=== PATIENT | female | born 1955 | race Caucasian/White ===

== ENCOUNTER 2018-09-02 16:38 | Inpatient (IN) | payer BC ==
[~2018-09-02] VITALS: Ht 157.5 cm; Wt 74.8 kg
[~2018-09-02 16:38] MED LIST: CIPROFLOXACIN500 M1; TYLENOL EX-STR500 M2 PO; VICODIN 5-5001 EACH; [UNRECOGNIZED DRUG - OTHER]
[2018-09-02 18:04] VITALS: BP 139/45
[2018-09-02] MEDS ORDERED: HIGH BLOOD PRESSURE (19:39)
[2018-09-02] MEDS ORDERED: LIPITOR 20 MG T20 M1 PO (19:40)
[2018-09-02] MEDS ORDERED: BYSTOLIC2.5 MG PO (19:40)
[2018-09-02 19:51] LABS: ABSOLUTE NEUTROPHILS 4.2 thou/uL (1.4-8.2); BASOPHILS 0.6 % (0.0-2.0); EOSINOPHILS 2.1 % (0.0-3.0); HEMATOCRIT 34.3 % (37.0-47.0); HEMOGLOBIN 11.4 gm/dL (12.0-15.0); MCH 30.8 pg (26.0-34.0); MCHC 33.4 g/dL (28.0-37.0); MCV 92.3 fL (80.0-100.0); MONOCYTES 6.9 % (1.0-8.0); PLATELET COUNT 333 thou/uL (150-400); POLYS 70.4 % (36.0-66.0); RBC 3.71 mil/uL (4.20-5.00); RDW 13.9 % (10.5-14.5)
[2018-09-02 20:04] LABS: ANION GAP 11 mmol/L (7-16); BUN 16 mg/dL (7-18); CALCIUM 9.2 mg/dL (8.5-10.1); CHLORIDE 103 mmol/L (98-107); CO2 28 mmol/L (21-32); CREATININE 0.7 mg/dL (0.6-1.0); GLUCOSE 103 mg/dL (74-106); POTASSIUM 3.5 mmol/L (3.5-5.1); SODIUM 142 mmol/L (136-145)
[2018-09-02 20:13] LABS: TROPONIN-I <0.06 ng/mL (<0.06)
--- NOTE | 2018-09-02 22:15 | NUR ---
REPORT TO 4W AT THIS TIME.
[2018-09-02 22:38] VITALS: BP 131/48
[2018-09-03] VITALS (7 sets, daily range): BP systolic 109–135; BP diastolic 42–60
--- NOTE | 2018-09-03 03:48 | NUR ---
PT ARRIVED TO FLOOR FROM ED PT ORIENTATED TO ROOM AND CALL LIGHT PT USED CALL LIGHT EFFECTIVELY NO COMPLAINTS OF PAIN NO ISSUES OVERNIGHT.
[2018-09-03] MEDS ORDERED: NORVASC5 MG PO (10:05)
--- NOTE | 2018-09-03 16:57 | 2DMMODE ---
[facility] [address] [facility] [place] [address] 2 D/M-MODE ECHOCARDIOGRAM Name: BRITTANI LLOYD Room #: 459-P ADM IN M.R.#: [id number] ������������� Admission: 09/02/18 ������������� Attend Phys: Cristo Villanueva, Discharge: ��� ������������� ��� Date of : 53 Date of Service: 09/03/18 1656 �� Report #: [id number] �������� ��������������������������������������������[id number] THIS REPORT FOR: //name// APPROVED REPORT Study performed: 09/03/2018 09:14:04 EXAM: Comprehensive 2D, Doppler, and color-flow Echocardiogram Patient Location: Bedside Room #: 459 Status: on-call BSA: 1.76 HR: 46 bpm BP: 110/52 mmHg Rhythm: Bradycardia Other Information Study Quality: Good Risk Factors: Cardiac Risk Factors: HTN, Hyperlipidemia Indications Bradycardia Syncope Hx Non Q Wave Infarction 2D Dimensions IVSd: 8.90 (7-11mm) LVOT Diam: 20.00 (18-24mm) LVDd: 52.61 mm PWd: 9.30 (7-11mm) Ascending Ao: 32.64 (22-36mm) LVDs: 33.60 (25-40mm) Aortic Root: 26.75 mm LV Single Plane 4CH: 67.69 % LV Single Plane 2CH: 70.52 % Biplane EF: 68.8 % Volumes Left Atrial Volume (Systole) Single Plane 4CH: 44.33 mL Single Plane 2CH: 44.71 mL LA ESV Index: 28.00 mL/m2 Aortic Valve AoV Peak Malik.: 1.66 m/s [facility] [place] [address] 2 D/M-MODE ECHOCARDIOGRAM Name: BRITTANI LLOYD Room #: 459-P [facility] IN .R.#: [id number] ������������� Admission: 09/02/18 ������������� Attend Phys: Cristo Villanueva, Discharge: ��� ������������� ��� Date of : 53 Date of Service: 09/03/18 1656 �� Report #: [id number] �������� ��������������������������������������������[id number] AO Peak Gr.: 10.99 mmHg LVOT Max P.38 mmHg LVOT Max V: 1.16 m/s ROSA Vmax: 2.28 cm2 Mitral Valve E/A Ratio: 0.8 MV Decel. Time: 392.78 ms MV E Max Malik.: 0.96 m/s MV A Malik.: 1.18 m/s MV PHT: 113.91 ms IVRT: 69.20 ms TDI E/Lateral E': 12.00 E/Medial E': 13.71 Medial E' Malik.: 0.07 m/s Lateral E' Malik.: 0.08 m/s Pulmonary Valve PV Peak Malik.: 1.03 m/s PV Peak Gr.: 4.24 mmHg Pulmonary Vein P Vein S: 0.38 m/s P Vein A: 0.31 m/s P Vein D: 0.51 m/s P Vein A Dur.: 124.6 msec P Vein S/D Ratio: 0.75 Tricuspid Valve TR Peak Malik.: 2.72 m/s RAP Estimate: 7.00 mmHg TR Peak Gr.: 29.52 mmHg PA Pressure: 37.00 mmHg Left Ventricle The left ventricle is normal size. There is normal LV segmental wall motion. There is normal left ventricular wall thickness. Left ventricular systolic function is normal. The left ventricular ejection fraction is within the normal range. LVEF is 65-70%. Mild diastolic dysfunction is present (impaired relaxation pattern). Right Ventricle The right ventricle is normal size. The right ventricular systolic function is normal. Atria The left atrium size is normal. The right atrium size is normal. [facility] [address] [place] [address] 2 D/M-MODE ECHOCARDIOGRAM Name: BRITTANI LLOYD Room #: 459-P [facility] IN [facility]#: [id number] ������������� Admission: 09/02/18 ������������� Attend Phys: Cristo Villanueva, Discharge: ��� ������������� ��� Date of : 53 Date of Service: 09/03/18 1656 �� Report #: [id number] �������� ��������������������������������������������[id number] Aortic Valve The aortic valve is normal in structure. No aortic regurgitation is present. There is no aortic valvular stenosis. Mitral Valve The mitral valve is normal in structure. Mild mitral regurgitation. No evidence of mitral valve stenosis. Tricuspid Valve The tricuspid valve is normal in structure. Mild tricuspid regurgitation. Pulmonary artery pressure is 37 mmHg. Pulmonic Valve The pulmonary valve is normal in structure. There is no pulmonic valvular regurgitation. Great Vessels The aortic root is normal in size. IVC is normal in size and collapses >50% with inspiration. Pericardium There is no pericardial effusion. <Conclusion> The left ventricle is normal size. LVEF is 65-70%. The aortic valve is normal in structure. The mitral valve is normal in structure. The tricuspid valve is normal in structure. Mild tricuspid regurgitation. Pulmonary artery pressure is 37 mmHg. The pulmonary valve is normal in structure. There is no pericardial effusion. ��������������������������������������������� <ELECTRONICALLY SIGNED> ���������������������������������������� By: Oleksandr Gomez MD ��������������������������������������������� 09/03/18 1656 55 55 Oleksandr Gomez MD /INF
--- NOTE | 2018-09-03 17:54 | NUR ---
PT A&OX3, VSS, NO SIGNS OF DISTRESS. PT HAS RESTED IN BED THROUGHOUT DAY. ORTHOSTATIC BP TAKEN EARLY SHIFT. PT REMAINS SINUS PATRICK ON TELE MONITOR. WILL CONTINUE TO MONITOR.
--- NOTE | 2018-09-03 19:10 | HC ---
[facility] [place] [address] CONSULTATION Name: BRITTANI LLOYD Room #: 459-P ADM IN M.R.#: [id number] Admission: 09/02/18 ������������������ Attend Phys: Cristo Villanueva MD Discharge: ������������������ Date of : 53 Report #: [id number] THIS REPORT FOR: //name// CC: Omero Villanueva HISTORY OF PRESENT ILLNESS: This is a very pleasant 63-year-old female who presented to the Emergency Room with 2 episodes of syncope over the last 24-36 hours. 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 The second episode occurred the day of admission and she was dry heaving and lost consciousness and fell backwards hitting her head. The patient denies any prior history of syncope. She states she did have myocardial infarction last summer, but had normal coronary arteries or nonsignificant coronary artery disease. Those records are not available to me currently. She denies any symptoms or problems. Since last summer until this episode of syncope. She has no orthopnea, PND, syncope, near syncope prior. No dependent or nondependent edema. No problems with medications. She states her blood pressure has been fairly well controlled. She does feel tired all the time, but she states she attributes that to working on the line and has not progressed any over the last 6 months. PAST MEDICAL HISTORY: 1. Possible prior myocardial infarction. 2. Melanoma history. 3. Hypertension. 4. Dyslipidemia. ALLERGIES: No known drug allergies. MEDICATIONS: Bystolic 2.5 mg daily, Lipitor 20 mg daily, acetaminophen p.r.n., amlodipine 5 mg. PAST SURGICAL HISTORY: 1. Melanoma excision. 2. Bladder sling. 3. Hysterectomy. SOCIAL HISTORY: The patient does not smoke, but does have secondhand smoke. Does not consume alcohol or recreational drugs. Does not follow particular exercise regimen, dietary restriction. FAMILY HISTORY: Significant for premature cardiovascular disease with a sister dying of myocardial infarction at age 52. REVIEW OF SYSTEMS: Except for symptoms previously mentioned and those commensurate with comorbid state, the 10-point review of system is negative. [address] [address] CONSULTATION Name: BRITTANI LLOYD Room #: 459-P [facility] IN M.R.#: [id number] Admission: 09/02/18 ������������������ Attend Phys: Cristo Villanueva MD Discharge: ������������������ Date of : 53 Report #: [id number] RADIOLOGIC: Chest x-ray shows no acute abnormalities. LABORATORY DATA: Demonstrates a potassium 3.5, BUN and creatinine of 16 and 0.7 respectively. Troponins are negative. H and H is 14.4 and 34.3 with a platelet count 333,000. Electrocardiogram demonstrates normal sinus rhythm, nonspecific ST-T wave changes. PHYSICAL EXAMINATION: GENERAL: Well-developed, well-nourished female resting comfortably, in no acute distress. VITAL SIGNS: Noted, reviewed in the chart. HEENT: Normocephalic, atraumatic. Pupils are equal, round, reactive to light and accommodation. Extraocular muscles are intact. Sclerae and conjunctivae are anicteric. NECK: JVD is normal. Carotid upstrokes are bilaterally symmetrical. No bruits are heard. No thyromegaly. No lymphadenopathy. LUNGS: Clear to auscultation. No wheezes, rhonchi or crackles. No CVA tenderness. CARDIAC: Demonstrates a regular rhythm. Normal first and second heart sounds. No ventricular or atrial gallops, no rubs noted. No murmurs. No lifts or heaves, PMI normal. ABDOMEN: Soft, nontender, nondistended. Normal bowel sounds. EXTREMITIES: Without cyanosis, clubbing or edema. Distal pulses are intact. DTR symmetrical. NEUROLOGIC: Cranial nerves 2-12 are grossly normal and symmetrical. PSYCHIATRIC: Alert, oriented with normal affect. SKIN: Warm and dry. IMPRESSION AND PLAN: 1. Syncope, etiology of which is uncertain. This is multifactorial. Interestingly enough, the nursing staff has noted that while awake, she has had heart rates in the mid to high 40s and low 50s. Nocturnally, she has the typical bradyarrhythmias that are very common in individuals. The Bystolic has been held and pulse still remains in the high 40s. This may be an etiology we can monitor over the next day or so and if the heart rate does not increase, then we may want to do a regular treadmill to see whether there is any chronotropic impairment or home with an event monitor, so we can try and see where her heart rate is and capture any other episodes that may occur, although this may be low yield. 2. Coronary artery disease, asymptomatic. Apparently was scheduled for followup with Dr. Bustillo's office here in the next several weeks. I will defer any of this follow up to him when he resumes care on Wednesday. 3. Hypertension. We will need to monitor the blood pressure very carefully. Since the Bystolic is on hold, we do not want to increase that to a point of being concerning and critical. We will monitor very closely and if need be, we [address] [address] CONSULTATION Name: BRITTANI LLOYD Room #: 459-P ADM IN M.R.#: [id number] Admission: 09/02/18 ������������������ Attend Phys: Cristo Villanueva MD Discharge: ������������������ Date of : 53 Report #: [id number] can add other agents that are not rate limiting. 4. Dyslipidemia. The patient is on a statin. Did discuss briefly [place] [employer] step 1 diet recommendations to be concomitantly used with statin therapy. ��������������������������������������������� <ELECTRONICALLY SIGNED> ���������������������������������������� By: Oleksandr Gomez MD ��������������������������������������������� 09/03/18 1910 1328 1350 Oleksandr Gomez MD /nt
--- NOTE | 2018-09-04 01:13 | NUR ---
PT RESTED THROUGHOUT THE NIGHT WITH NO COMPLAINTS OF PAIN NO ISSUES OVERNIGHT.
[2018-09-04 03:30] VITALS: BP 131/52
[2018-09-04 08:04] VITALS: BP 114/55
[2018-09-04 08:55] VITALS: BP 114/55
--- NOTE | 2018-09-04 11:16 | NUR ---
DIS PT IS FOR DC TODAY. IV AND HEART MONITOR DC'D. WILL FF ON CARDIOLOGY CLINIC TOMMORROW PER PROVIDER.
--- NOTE | 2018-09-05 08:03 | EKG ---
[address] [address] ELECTROCARDIOGRAM REPORT Name: BRITTANI LLOYD [facility] ..#: [id number] ������������������ Admission: 09/02/18 ������������������ Attend Phys: Cristo Villanueva MD Discharge: 09/04/18 ������������������ Date of : 53 Report #: [id number] ����������������������������������������������������������������� [id number] THIS REPORT FOR: //name// [facility] ED Test Date: 2018-09-02 Test Time: 19:35:15 Pat Name: BRITTANI LLOYD Department: Room: [facility] Gender: F [employer] Manager: IRVING MENENDEZ : 1955 Requested By: Krystyna Seay Order Number: [id number] MD: Lalo Bustillo Measurements Intervals [place] Rate: 39 P: 31 UT: 172 QRS: -25 QRSD: 130 T: -11 QT: 470 QTc: 379 Interpretive Statements Sinus bradycardia Borderline T abnormalities Compared to ECG 05/07/1997 09:56:00 T-wave abnormality now present Electronically Signed On 09-05-2018 8:03:32 CDT by Lalo Bustillo [email or web address] ��������������������������������������������� <ELECTRONICALLY SIGNED> ���������������������������������������� By: Lalo Bustillo MD, [facility] ��������������������������������������������� 09/05/18 0803 34 34 Lalo Bustillo MD, [facility] /EPI
== END 2018-09-04 12:58 | disposition home or self-care (01) | DRG 312 ==
LOC: ER 16:38 → EROBS 22:00 → 4W 23:29
PROVIDERS: Emergency Medicine; ADMIT Internal Medicine
DX: R55 Syncope and collapse (principal); R00.1 Bradycardia, unspecified; I10 Essential (primary) hypertension; I25.10 Atherosclerotic heart disease of native coronary artery without angina pectoris; E78.5 Hyperlipidemia, unspecified; T44.7X5A Adverse effect of beta-adrenoreceptor antagonists, initial encounter; Y92.89 Other specified places as the place of occurrence of the external cause; I25.2 Old myocardial infarction; Z90.710 Acquired absence of both cervix and uterus; Z85.820 Personal history of malignant melanoma of skin; Z79.899 Other long term (current) drug therapy; Z82.49 Family history of ischemic heart disease and other diseases of the circulatory system
CPT/HCPCS: 10045

== ENCOUNTER 2018-09-07 16:54 | Inpatient (IN) | payer BC ==
[~2018-09-07] VITALS: Ht 157.5 cm; Wt 74.8 kg
--- NOTE | ~2018-09-07 | HC ---
[facility] [place] [address] CONSULTATION Name: BRITTANI LLOYD Room #: 359-P ADM IN M.R.#: [id number] Admission: 09/07/18 ������������������ Attend Phys: Yong Huitron Discharge: ������������������ Date of : 53 Report #: [id number] THIS REPORT FOR: //name// CC: Omero Villanueva DATE OF SERVICE: 09/09/2018 REASON FOR CONSULTATION: Syncope and sinus bradycardia. HISTORY OF PRESENT ILLNESS: The patient is a 63-year-old patient who follows with Dr. Bustillo. She has a history of a recovered Takotsubo cardiomyopathy, mild coronary artery disease based on a cath in 2018, hypertension, hyperlipidemia and recent syncopal episode. She was hospitalized last week. She reports that last week while at work, she felt lightheaded, diaphoretic and passed out. On Wednesday, she was in her restroom, she was going to go try and throw up and before she could throw up, she passed out. She was admitted to the hospital where her blood pressure and heart rates were found to be low and her beta yina and other blood pressure medications were discontinued and she was sent home with a heart monitor. She did well on Wednesday, but on Wednesday, she was at work, she felt flushed, lightheaded, and then fell to the ground, but did not completely pass out. This was around 10:00 p.m. She was wearing her diagnostic cardiac sonographer. I did have them pull up her monitor strips. There were no arrhythmias noted at this point. Because of the syncopal episode, she came back to the Emergency Room for further evaluation. On telemetry, she has periods of sinus bradycardia into the 30s and 40s; however, she underwent an exercise treadmill stress test yesterday and she is able to augment her heart rate up to 115 beats per minute. She exercised for 6-1/2 minutes and achieved 9 mets. She denies any chest pain or chest tightness. She denies PND or orthopnea. Her last echo was in 03/2018 revealing EF 55-60% with no ischemic changes. PAST MEDICAL HISTORY: As above. SOCIAL HISTORY: Does not smoke. FAMILY HISTORY: Noncontributory. ALLERGIES: None. MEDICATIONS: Have been reviewed and she is on aspirin, famotidine, Ambien, Zofran and all her blood pressure medications have been stopped. REVIEW OF SYSTEMS: A 12-point review of systems was performed and was negative other than what I mentioned above. [address] [address] CONSULTATION Name: BRITTANI LLOYD Room #: 359-P [facility] IN M.R.#: [id number] Admission: 09/07/18 ������������������ Attend Phys: Yong Huitron Discharge: ������������������ Date of : 53 Report #: [id number] PHYSICAL EXAMINATION: VITAL SIGNS: Temperature is 36.7, pulse 51-66, respirations 20, blood pressure 144/64, sats are 97%. GENERAL: She is in no acute distress. HEENT: Oropharynx is clear. Sclerae anicteric. NECK: Supple, no thyromegaly or carotid bruits. HEART: Regular rate and rhythm with no murmurs, rubs or gallops. LUNGS: Clear to auscultation bilaterally. ABDOMEN: Soft, nontender, nondistended, no hepatosplenomegaly. EXTREMITIES: There is no clubbing, cyanosis or edema. NEUROLOGIC: Cranial nerves 2-12 are intact. LABORATORY DATA: Have been reviewed. Hemoglobin is 11, white count is 7, platelets 311. Chemistry: Sodium 143, potassium 3.5, creatinine 0.8. Troponin is negative. ProBNP is 200. TSH is 0.37. Her EKG shows normal sinus rhythm with normal intervals and normal QTc. ASSESSMENT: 1. Sinus bradycardia. 2. Syncope. PLAN: In summary, the patient has sinus bradycardia, but her heart rate augments with activity. She was wearing a diagnostic cardiac sonographer at the time of her syncopal episode and there were no alerted events during that episode on Wednesday. As such, I do not believe there is currently an arrhythmia to explain her syncope. It may be related to low blood pressures. I have recommended that she continue to wear the diagnostic cardiac sonographer. Follow up with Dr. Bustillo. If we start seeing more bradycardia that is symptomatic, then we will consider pacemaker implantation. ��������������������������������������������� ���������������������������������������� By: ��������������������������������������������� 1201 0425 Tamir Hansen MD /nt
[~2018-09-07 16:54] MED LIST changes: +BYSTOLIC2.5 MG PO; +HIGH BLOOD PRESSURE; +LIPITOR 20 MG T20 M1 PO; +NORVASC5 MG PO
[2018-09-07 16:55] VITALS: BP 131/57
[2018-09-07] MEDS ORDERED: UNICOMPLEX M TA1 TA1 PO (17:04)
[2018-09-07] MEDS ORDERED: FISH OIL 1,001000 M2 PO (17:04)
[2018-09-07] MEDS ORDERED: MICROZIDE12.5 MG PO (17:05)
[2018-09-07] MEDS ORDERED: LISINOPRIL40 MG PO (17:05)
[2018-09-07] MEDS ORDERED: ZANTAC 150MG T150 MG PO (17:05)
[2018-09-07] MEDS ORDERED: ASPIR 8181 MG PO (17:05)
[2018-09-07] MEDS ORDERED: MOBIC15 MG PO (17:05)
[2018-09-07 17:32] LABS: HEMATOCRIT 36.1 % (37.0-47.0); MCH 30.6 pg (26.0-34.0); MCHC 33.1 g/dL (28.0-37.0); MCV 92.4 fL (80.0-100.0); RBC 3.91 mil/uL (4.20-5.00); RDW 14.2 % (10.5-14.5); WBC 12.7 thou/uL (4.0-11.0)
[2018-09-07 17:46] LABS: ANION GAP 11 mmol/L (7-16); BUN 25 mg/dL (7-18); CALCIUM 9.2 mg/dL (8.5-10.1); CHLORIDE 105 mmol/L (98-107); CO2 27 mmol/L (21-32); CREATININE 0.8 mg/dL (0.6-1.0); GLUCOSE 124 mg/dL (74-106); POTASSIUM 3.5 mmol/L (3.5-5.1); SODIUM 143 mmol/L (136-145)
[2018-09-07 18:06] LABS: ALBUMIN 4.1 g/dL (3.4-5.0); SGOT 12 U/L (15-37); SGPT 27 U/L (30-65); TOTAL BILIRUBIN 0.3 mg/dL (<0.1-1.0); TOTAL PROTEIN 7.6 g/dL (6.4-8.2); TROPONIN-I <0.06 ng/mL (<0.06)
[2018-09-07 18:33] VITALS: BP 131/57
[2018-09-07 19:37] VITALS: BP 125/51
[2018-09-07] MEDS ORDERED: IBUPROFEN 400400 M2 PO (19:53)
[2018-09-07 19:57] VITALS: BP 154/58
[2018-09-07 20:32] LABS: URINE BILIRUBIN NEGATIVE (Negative); URINE BLOOD NEGATIVE (Negative); URINE CLARITY CLEAR; URINE COLOR YELLOW; URINE GLUCOSE-RANDOM* NEGATIVE (Negative); URINE KETONES NEGATIVE (Negative); URINE LEUKOCYTES-REFLEX NEGATIVE (Negative); URINE NITRITE-REFLEX NEGATIVE (Negative); URINE PROTEIN (DIPSTICK) NEGATIVE (Negative); URINE UROBILINOGEN 0.2 E.U./dl (0.2-1.0)
[2018-09-08] VITALS (9 sets, daily range): BP systolic 103–137; BP diastolic 47–66
[2018-09-08 05:12] LABS: HEMATOCRIT 33.3 % (37.0-47.0); HEMOGLOBIN 11.1 gm/dL (12.0-15.0); MCH 30.8 pg (26.0-34.0); MCHC 33.4 g/dL (28.0-37.0); MCV 92.1 fL (80.0-100.0); RBC 3.61 mil/uL (4.20-5.00); RDW 14.4 % (10.5-14.5); WBC 7.1 thou/uL (4.0-11.0)
--- NOTE | 2018-09-08 05:58 | NUR ---
PT DC'D JUST A FEW DAYS AGO. ADMITTED WITH SAME DIAGNOSIS. HEART RATES ARE SOFT, JUST THEY WERE WITH LAST ADMISSION. PT FELL AGAIN AND HAS HUGE BRUISE ON RIGHT SIDE OF ABDOMEN. PT DOES NOT WANT TO BE ON BED ALARM, EDUCATED PT ABOUT FALLS. HOURLY ROUNDING.
--- NOTE | 2018-09-08 07:53 | EKG ---
[address] [employer] [place] [address] ELECTROCARDIOGRAM REPORT Name: BRITTANI LLOYD Room #: 359-[facility]..#: [id number] ������������������ Admission: 09/07/18 ������������������ Attend Phys: Yong Huitron Discharge: ������������������ Date of : 53 Report #: [id number] ����������������������������������������������������������������� [id number] THIS REPORT FOR: //name// [facility] ED Test Date: 2018-09-07 Test Time: 17:45:59 Pat Name: BRITTANI LLOYD Department: Room: [facility] Gender: F Leadership Development Manager: LUTHER : 1955 Requested By: Suyapa Elias Order Number: [id number] MD: Lalo Bustillo Measurements Intervals [place] Rate: 49 P: 34 UT: 171 QRS: -34 QRSD: 119 T: 4 QT: 442 QTc: 400 Interpretive Statements Sinus bradycardia Leftward axis Poor R wave progression Nonspecific intraventricular conduction delay Compared to ECG 09/02/2018 19:35:15 No significant change was found Electronically Signed On 09-08-2018 7:53:45 CDT by Lalo Bustillo [email or web address] ��������������������������������������������� <ELECTRONICALLY SIGNED> ���������������������������������������� By: Lalo Bustillo MD, [facility] ��������������������������������������������� 09/08/18 0753 1745 1745 Lalo Bustillo MD, [facility] /EPI
--- NOTE | 2018-09-08 14:35 | TST ---
[facility] [employer] [address] TREADMILL STRESS TEST Name: BRITTANI LLOYD Room #: 359-P [facility] IN M.R.#: [id number] ������������� Admission: 09/07/18 ������������� Attend Phys: Yong Smith Discharge: ��� ������������� ��� Date of : 53 Date of Service: 09/08/18 1435 �� Report #: [id number] �������� ��������������������������������������������[id number] THIS REPORT FOR: //name// APPROVED REPORT Study performed: 09/08/2018 14:02:30 Indication: Bradycardia Patient Location: Echo lab Room #: 2 Stress Tech: ROE Milligan Stress Nurse: Jess Krishnamurthy RN Ht: 5 ft 2 in Wt: 165 lbs BSA: 1.76 m2 HR: 63 bpm BP: 121/80 mmHg BMI: 30.17 Rhythm: NSR Medical History Cardiac Risk Factors: HTN, Hyperlipidemia, FHX of CAD Exercise History: Sedentary Stress Test Details Stress Test: Exercise stress testing was performed using a Jerry protocol. HR Max Heart Rate (APMHR): 156 bpm Resting HR: 63 bpm Target HR (85% APMHR): 132 bpm Max HR Achieved: 117 bpm % of APMHR: 75 Recovery HR: 68 bpm HR response to stress: Normal HR response to stress BP Resting BP: 121/80 mmHg Max BP: 172/80 mmHg Recovery BP: 130/80 mmHg BP response to stress: Normal blood pressure response to stress. ECG Resting ECG: Sinus Bradycardia Stress ECG: Sinus Rhythm Maximum ST Deviation: 0 mm Arrhythmia: None Recovery ECG: Sinus Rhythm [facility] [address] [address] TREADMILL STRESS TEST Name: BRITTANI LLOYD Room #: 359-P [facility] IN .R.#: [id number] ������������� Admission: 09/07/18 ������������� Attend Phys: Yong Smith Discharge: ��� ������������� ��� Date of : 53 Date of Service: 09/08/18 143 �� Report #: [id number] �������� ��������������������������������������������[id number] Recovery ST Change: None Recovery ST Deviation: 0 mm Recovery Arrhythmia: None Clinical Reason for Termination: Maximal effort Stress Symptoms: Dizziness, Lightheaded Exercise duration: 6 min 49 sec Exercise capacity: 9.2 METs Overall Exercise Capacity for Age: Poor Angina Score: None Stress ECG Conclusion Clinical: Non-ischemic Normal submaximal stress test. Marie Treadmill Score is 6.0 which is Low risk. <Conclusion> Clinical: Non-ischemic Normal submaximal stress test. ��������������������������������������������� <ELECTRONICALLY SIGNED> ���������������������������������������� By: Lalo Bustillo MD, FAC ��������������������������������������������� 09/08/181434 34 34 Lalo Bustillo MD, FACC /INF
--- NOTE | 2018-09-08 18:13 | NUR ---
PATIENT CONT TO HAVE LOW PULSE RATE. CARDIOLOGY ON BOARD. SHE IS ALERT ORIENTED X4. SHE AMBULATES WITH A STEADY GAIT. DID COMPLAIN OF HEADACHE. PRN PAIN MED ADMINISTERED. SHE IS NOW SLEEPING AND WILL CON WITH PLAN OF CARE.
--- NOTE | 2018-09-09 03:04 | NUR ---
PATIENT IS ALERT AND ORIENTED. PATIENT CALL APPROPIATELY FOR ASSISTANCE. PATIENT IS SBA. PATIENT IS ON ROOM AIR. PATIENT HAD A STRESS TEST TODAY. PATIENT DENIES PAIN. PATIENT IS RESTING COMFORTABLY IN BED.M.
[2018-09-09 03:42] VITALS: BP 116/56
--- NOTE | 2018-09-09 06:46 | NUR ---
PATIENT REFUSED BED ALARM MOST OF SHIFT ALARM ACITIVATED ONCE PATIENT WAS ASLEEP.
[2018-09-09 07:39] VITALS: BP 144/64
--- NOTE | 2018-09-09 08:12 | EKG ---
[place] [address] [facility] [place] [address] ELECTROCARDIOGRAM REPORT Name: BRITTANI LLOYD Room #: 359- ADM IN M.R.#: [id number] ������������������ Admission: 09/07/18 ������������������ Attend Phys: Yong Huitron Discharge: ������������������ Date of : 53 Report #: [id number] ����������������������������������������������������������������� [id number] THIS REPORT FOR: //name// [facility] Test Date: 2018-09-09 Test Time: 07:33:45 Pat Name: BRITTANI LLOYD Department: Room: 359 Gender: F Aircraft Cleaner: MARISA : 1955 Requested By: Lalo Bustillo Order Number: [id number] MD: Lalo Bustillo Measurements Intervals [place] Rate: 50 P: 40 [place]: 175 QRS: -25 QRSD: 117 T: 0 QT: 452 QTc: 413 Interpretive Statements Sinus bradycardia Nonspecific T wave abnormality Compared to ECG 09/07/2018 17:45:59 No significant change was found Electronically Signed On 09-09-2018 8:12:06 CDT by Lalo Bustillo [email or web address] ��������������������������������������������� <ELECTRONICALLY SIGNED> ���������������������������������������� By: Lalo Bustillo MD, [facility] ��������������������������������������������� 09/09/18 0812 2 2 Lalo Bustillo MD, [facility] /EPI
--- NOTE | 2018-09-09 10:30 | NUR ---
ASSESSMENT: CM REVIEWED CHART AND MET WITH PATIENT AT THE BEDSIDE. PT IS ALERT AND ORIENTED X4. PT WAS ADMITTED DUE TO BRADYCARDIA. PT REPORTS THAT SHE LIVES IN A HOUSE WITH HER . 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 PT REPORTS SHE AMBULATES INDEPENDENTLY AND IS INDEPENDENT WITH ADLS. PT DENIES HAVING DME OR THE NEED FOR IT. PT REPORTS THAT SHE HAS NOT HAD HH IN THE PAST OR BEEN TO A SNF. CM DISCUSSED ROLE. PT DOES NOT ANTICIPATE HAVING ANY NEEDS AT DISCHARGE. CM WILL CONTINUE TO FOLLOW TO ASSIST NEEDED.
[2018-09-09 17:04] VITALS: BP 168/75
--- NOTE | 2018-09-09 18:57 | NUR ---
PATIENT HAS RESTED IN ROOM AT THIS TIME. DENIES PIAN. UP AD LUCA. CONT TO PROGRESS TOWARDS GOAL. AOX4. CONT OF BOWEL AND BLADDER. WILL CONT WITH PLAN OF CARE.
[2018-09-09 19:30] VITALS: BP 131/66
--- NOTE | 2018-09-10 01:53 | NUR ---
PATIENT IS ALERT AND ORIENTED.PATIENT IS UP AD LUCA, ROOM AIR. PATIENT IS SINUS PATRICK ON TELE. PATIENT EDUCATED ON CALLING IF REQUIRES ASSISTANCE. PATIENT DENIES PAIN. PATIENT IS PENDING POSSIBLE DISCHARGE TACOS. BP MEDICATIONS TO BE CHANGED. WCM. PATIENT IS RESTING COMFORTABLEY
[2018-09-10 04:20] VITALS: BP 138/56
[2018-09-10 07:27] VITALS: BP 199/35
[2018-09-10 07:45] VITALS: BP 119/35
[2018-09-10 08:45] VITALS: BP 119/35
--- NOTE | 2018-09-10 09:10 | NUR ---
PATIENT WILL BE DISCHARGED THIS AM TO HOME. PLAN IS FOR HER TO FOLLOW UP WITH CARDIOLOGY OUT PATIENT. PT WAS EDUCATED ON NEED TO CALL CARDIOLOGY FOR IF BP IS TOO LOW.. WOODS MONITOR WAS PLACED ON PATIENT PRIOR TO DISCHARGE. WILL CONT WITH PLAN OF CARE. .
== END 2018-09-10 09:54 | disposition home or self-care (01) | DRG 312 ==
LOC: ER 16:54 → 3W 18:31 → EROBS 18:31 → 3W 19:37
PROVIDERS: Student in an Organized Health Care Education/Training Program; ADMIT Hospitalist
DX: R55 Syncope and collapse (principal); I51.81 Takotsubo syndrome; R00.1 Bradycardia, unspecified; I10 Essential (primary) hypertension; I25.10 Atherosclerotic heart disease of native coronary artery without angina pectoris; E78.5 Hyperlipidemia, unspecified; I25.2 Old myocardial infarction; Z85.820 Personal history of malignant melanoma of skin; Z90.722 Acquired absence of ovaries, bilateral; Z90.710 Acquired absence of both cervix and uterus; Z79.82 Long term (current) use of aspirin; Z79.899 Other long term (current) drug therapy; Z82.49 Family history of ischemic heart disease and other diseases of the circulatory system
CPT/HCPCS: 10879

== ENCOUNTER → 2019-04-11 | Day surgery (SDC) | payer BC ==
[~2019-04-11] VITALS: Ht 157.5 cm; Wt 74.4 kg
[~2019-04-11] MED LIST changes: +ADVIL200 M1 PO; +ASPIR 8181 MG PO; +FISH OIL 1,001000 M2 PO; +FISH OIL 1,2001 EAC3 PO; +HYDROCHLOROTH12.5 M1 PO; +IBUPROFEN 400400 M2 PO; +LISINOPRIL40 MG PO; +MICROZIDE12.5 MG PO; +MOBIC15 MG PO; +NORVASC5 M1 PO; +UNICOMPLEX M TA1 TA1 PO; +VITAMIN D35000 UNI1 PO; +WOMEN'S 50 PLU1 EAC1 PO; +ZANTAC 150MG T150 MG PO; +ZESTRIL20 MG PO
[2019-04-11 14:56] VITALS: BP 140/63
== END | disposition home or self-care (01) ==
LOC: OR 11:54
DX: M25.571 Pain in right ankle and joints of right foot (principal); M72.2 Plantar fascial fibromatosis; M77.31 Calcaneal spur, right foot; I10 Essential (primary) hypertension; I25.10 Atherosclerotic heart disease of native coronary artery without angina pectoris; E78.5 Hyperlipidemia, unspecified; I51.81 Takotsubo syndrome; Z90.710 Acquired absence of both cervix and uterus; Z85.828 Personal history of other malignant neoplasm of skin; Z98.890 Other specified postprocedural states; Z79.899 Other long term (current) drug therapy
CPT/HCPCS: 50010; 50101; 50386; 56525; 56526; 57091; 62110; 62850; 70005

== ENCOUNTER → 2019-07-10 | Outpatient (CLI) | payer BC | END | disposition home or self-care (01) | LOC: SJCVCIMAG 09:23 | DX: I07.1 Rheumatic tricuspid insufficiency (principal); E78.5 Hyperlipidemia, unspecified; I65.23 Occlusion and stenosis of bilateral carotid arteries; I10 Essential (primary) hypertension; Z87.898 Personal history of other specified conditions ==

== ENCOUNTER → 2020-08-05 | Outpatient (CLI) | payer BC | LOC: BC 09:35 | PROVIDERS: ATTEND Family Medicine | DX: N63.0 Unspecified lump in unspecified breast (principal) ==

== ENCOUNTER → 2020-10-16 | Outpatient (CLI) | payer BC ==
[~2020-10-16] MED LIST changes: -ASPIR 8181 MG PO; +CHILDREN'S ASPI81 M1 PO; +DOK100 MG PO; +FAMOTIDINE 20 M20 MG PO; +IBUPROFEN 600600 M1 PO; +MYRBETRIQ50 MG PO; -TYLENOL EX-STR500 M2 PO; +TYLENOL EXTRA500 MG PO; +VITAMIN D3125 MC1 PO; -VITAMIN D35000 UNI1 PO
== END ==
LOC: LAB 07:43
PROVIDERS: ATTEND Podiatrist Foot & Ankle Surgery
DX: Z01.812 Encounter for preprocedural laboratory examination (principal); Z20.822 Contact with and (suspected) exposure to COVID-19

== ENCOUNTER 2020-10-22 09:21 | Day surgery (SDC) | payer BC ==
[~2020-10-22] VITALS: Ht 157.5 cm; Wt 77.1 kg
[2020-10-22 10:03] LABS: HEMATOCRIT 35.8 % (37.0-47.0); HEMOGLOBIN 12.1 gm/dL (12.0-15.0); MCH 30.7 pg (26.0-34.0); MCHC 33.8 g/dL (28.0-37.0); MCV 90.9 fL (80.0-100.0); RBC 3.94 mil/uL (4.20-5.00); RDW 14.1 % (10.5-14.5)
[2020-10-22 10:09] LABS: CALCIUM 9.2 mg/dL (8.5-10.1); CREATININE 0.7 mg/dL (0.6-1.0); POTASSIUM 3.7 mmol/L (3.5-5.1)
[2020-10-22 10:14] VITALS: BP 154/74
== END 2020-10-22 15:00 | disposition home or self-care (01) ==
LOC: OR 09:21 → TBA 10:00 → OR 10:43
PROVIDERS: ATTEND Podiatrist Foot & Ankle Surgery
DX: M72.2 Plantar fascial fibromatosis (principal); I10 Essential (primary) hypertension; E78.5 Hyperlipidemia, unspecified; I42.9 Cardiomyopathy, unspecified; K21.9 Gastro-esophageal reflux disease without esophagitis; Z98.890 Other specified postprocedural states; Z79.899 Other long term (current) drug therapy; Z90.710 Acquired absence of both cervix and uterus; Z85.820 Personal history of malignant melanoma of skin; Z85.828 Personal history of other malignant neoplasm of skin; Z88.8 Allergy status to other drugs, medicaments and biological substances
CPT/HCPCS: 50010; 50101; 50386; 56525; 56526; 57091; 57179; 62110; 62900; 70005

== ENCOUNTER → 2021-02-10 | Outpatient (CLI) | payer BC | LOC: SJCVCIMAG 07:15 | PROVIDERS: ATTEND Internal Medicine | DX: I07.1 Rheumatic tricuspid insufficiency (principal); I10 Essential (primary) hypertension ==